=== PATIENT | male | born 1975 | race African-American/Black ===

== ENCOUNTER 2020-08-25 13:04 | Emergency (ER) | payer MEDICAID ==
[~2020-08-25] VITALS: Ht 170.2 cm; Wt 81.6 kg
[2020-08-25 15:00] VITALS: BP 116/75
== END 2020-08-25 15:28 | disposition home or self-care (01) ==
LOC: ER 13:04
DX: Z77.120 Contact with and (suspected) exposure to mold (toxic) (principal); F17.200 Nicotine dependence, unspecified, uncomplicated
CPT/HCPCS: 71046